=== PATIENT | male | born 1990 | race Caucasian/White ===

== ENCOUNTER 2019-03-29 06:34 | Emergency (ER) | payer MEDICAID ==
[~2019-03-29] VITALS: Ht 177.8 cm; Wt 88.5 kg
[~2019-03-29 06:34] MED LIST: ALPR1TAB2 PO; VERA120C2 PO
--- NOTE | 2019-03-29 06:40 | NUR ---
Placed in room 2 . Placed on threat monitoring analyst, blood pressure machine and pulse oximeter. To gown for exam. Side rails up. Report given to Bassam LOBO.
[2019-03-29 06:41] VITALS: BP_SYST 131
--- NOTE | 2019-03-29 06:41 | NUR ---
Pt came in via ambulance with a complete of palpitations and anxiety. No other complaint. Denies chest pain and no fever noted. Has history of SVT. Pt stated he has allergy to penicillin. Safety precaution observed. Will continue to monitor Pt.
--- NOTE | 2019-03-29 06:41 | NUR ---
ER at bedside examining patient.
[2019-03-29] MEDS ORDERED: NACL 0.9% 1,000 ML IV ONE (06:46)
--- NOTE | 2019-03-29 06:46 | NUR ---
# 20 gauge angiocath placed to RT AC. Use of asceptic technique. Opsite placed over site. Blood return noted. Blood for lab drawn from site. Flushed with 10 cc of normal saline. No evidence of infiltration noted. Patient tolerated well.
[2019-03-29] MEDS ORDERED: ONDANSETRON HCL 4 MG/2 ML VIAL IVP ONE (07:00)
--- NOTE | 2019-03-29 07:10 | NUR ---
Report from Jet LOBO. Patient sitting up in [facility], A&4.
[2019-03-29 07:27] LABS: BASOPHILS % (AUTO) 0.3 % (0.0-2.0); EOSINOPHILS # (AUTO) 0.1 K/uL (0.0-0.4); EOSINOPHILS % (AUTO) 1.1 % (0.0-4.0); HEMATOCRIT 41.3 % (36-54); LYMPHOCYTES # (AUTO) 3.9 K/uL (1.0-5.5); LYMPHOCYTES % (AUTO) 61.4 % (20.5-51.5); MEAN CORPUSCULAR HEMOGLOBIN 32 pg (27-31); MEAN CORPUSCULAR HGB CONC 34 % (32-36); MEAN CORPUSCULAR VOLUME 94 fL (79.0-98.0); MONOCYTES # (AUTO) 0.4 K/uL (0.0-1.0); MONOCYTES % (AUTO) 6.3 % (1.7-9.3); NEUTROPHILS # (AUTO) 1.9 K/uL (1.8-7.7); NEUTROPHILS % (AUTO) 30.9 % (40.0-70.0); PLATELET COUNT (AUTO) 231 K/uL (130-430); RED BLOOD CELL COUNT(AUTO) 4.39 MIL/uL (4.2-6.2); RED CELL DISTRIBUTION WIDTH 13.3 % (9.0-15.0); WHITE BLOOD COUNT (AUTO) 6.3 K/uL (4.8-10.8)
[2019-03-29 07:43] LABS: CALCIUM 8.8 mg/dL (8.4-11.0); CREATININE 0.99 mg/dL (0.55-1.30); POTASSIUM 3.2 mmol/L (3.5-5.1)
--- NOTE | 2019-03-29 07:45 | NUR ---
Patient given blanket, PT awake and talking with family member at bedside.
[2019-03-29 07:49] LABS: ALBUMIN 4.2 g/dL (3.4-4.8); TOTAL BILIRUBIN 0.5 mg/dL (0.0-1.0)
[2019-03-29 09:11] VITALS: BP_SYST 106
== END 2019-03-29 09:11 | disposition home or self-care (01) ==
LOC: SED 06:34
DX: F41.0 Panic disorder [episodic paroxysmal anxiety] (principal); R00.2 Palpitations; R00.0 Tachycardia, unspecified; F41.9 Anxiety disorder, unspecified; Z88.0 Allergy status to penicillin
CPT/HCPCS: 36415; 71045; 80053; 83880; 84484; 85025; 93005; 96374; 99284; J2405; J7030

== ENCOUNTER 2019-04-24 03:36 | Emergency (ER) | payer MEDICAID ==
[~2019-04-24] VITALS: Ht 177.8 cm; Wt 88.5 kg
[2019-04-24 03:36] VITALS: BP_SYST 118
--- NOTE | 2019-04-24 03:36 | NUR ---
Placed in room 06 . Placed on monitor and storage bin tender, blood pressure machine and pulse oximeter. To gown for exam. Side rails up.
--- NOTE | 2019-04-24 03:41 | NUR ---
Pt presents to ER with girlfriend with c/o anxiety. Pt A&Ox4. Pt states at approximately 3 am, pt woke up feeling very anxious. Pt states he attempted to walk around and use restroom but anxiety got worse. Pt states he felt his heart rate increasing and felt palpitation. Pt states he then became SOB and having pain to left shoulder. Pt states pain 4/10. Pt states this is the second time this has occurred in one month. Pt states history of anxiety, panic attacks, asthma, and SVT. Breath sounds bilaterally clear with no use of accessory muscles. Will continue to monitor.
--- NOTE | 2019-04-24 04:29 | NUR ---
ER Dr. Tolentino at bedside examining patient.
--- NOTE | 2019-04-24 04:45 | NUR ---
Radiology at bedside.
--- NOTE | 2019-04-24 06:00 | NUR ---
Labs drawn at bedside by Lakeisha LOBO.
[2019-04-24 06:50] LABS: BASOPHILS % (AUTO) 0.4 % (0.0-2.0); EOSINOPHILS # (AUTO) 0.1 K/uL (0.0-0.4); EOSINOPHILS % (AUTO) 1.3 % (0.0-4.0); HEMATOCRIT 39.8 % (36-54); HEMOGLOBIN 13.4 g/dL (14.0-18.0); LYMPHOCYTES # (AUTO) 1.9 K/uL (1.0-5.5); LYMPHOCYTES % (AUTO) 33.3 % (20.5-51.5); MEAN CORPUSCULAR HEMOGLOBIN 32 pg (27-31); MEAN CORPUSCULAR HGB CONC 34 % (32-36); MEAN CORPUSCULAR VOLUME 94 fL (79.0-98.0); MONOCYTES # (AUTO) 0.4 K/uL (0.0-1.0); MONOCYTES % (AUTO) 7.1 % (1.7-9.3); NEUTROPHILS # (AUTO) 3.2 K/uL (1.8-7.7); NEUTROPHILS % (AUTO) 57.9 % (40.0-70.0); PLATELET COUNT (AUTO) 221 K/uL (130-430); RED BLOOD CELL COUNT(AUTO) 4.21 MIL/uL (4.2-6.2); RED CELL DISTRIBUTION WIDTH 13.2 % (9.0-15.0); WHITE BLOOD COUNT (AUTO) 5.6 K/uL (4.8-10.8)
[2019-04-24 06:59] LABS: POTASSIUM 3.8 mmol/L (3.5-5.1)
[2019-04-24 07:00] LABS: CALCIUM 8.7 mg/dL (8.4-11.0); CREATININE 1.04 mg/dL (0.55-1.30); TOTAL BILIRUBIN 0.5 mg/dL (0.0-1.0)
[2019-04-24] MEDS ORDERED: NACL 0.9% 1,000 ML IV ONE (07:00)
[2019-04-24 07:01] LABS: ALBUMIN 3.9 g/dL (3.4-4.8)
--- NOTE | 2019-04-24 07:01 | NUR ---
# 20 gauge angiocath placed to R AC. Use of asceptic technique. Opsite placed over site. Blood return noted. Flushed with 10 cc of normal saline. No evidence of infiltration noted. Patient tolerated well.
--- NOTE | 2019-04-24 07:24 | NUR ---
Pt medicated with a bolus of normal saline.
--- NOTE | 2019-04-24 07:26 | NUR ---
Report given to LASHELL Paige to endorse all care.
--- NOTE | 2019-04-24 08:00 | NUR ---
PT RESTING IN BED COMFORTABLY NO C/O PAIN OR DISTRESS AT THIS TIME.
[2019-04-24 08:45] VITALS: BP_SYST 98
--- NOTE | 2019-04-24 08:45 | NUR ---
Patient does not wish to proceed with medical care recommended by DR FRITZ. Patient given information related to possible complications, up to and including , which could occur as a result of leaving hospital at this time. Patient verbalizes understanding of risks involved leaving against medical advice. Patient has signed AMA form.
== END 2019-04-24 08:45 | disposition left against medical advice (07) ==
LOC: SED 03:36
DX: R07.89 Other chest pain (principal); Z86.79 Personal history of other diseases of the circulatory system; Z86.73 Personal history of transient ischemic attack (TIA), and cerebral infarction without residual deficits; Z88.0 Allergy status to penicillin
CPT/HCPCS: 36415; 71045; 80053; 84484; 85025; 85379; 93005; 99285; J7030

== ENCOUNTER 2019-05-16 17:12 | Emergency (ER) | payer MEDICAID ==
[~2019-05-16] VITALS: Ht 180.3 cm; Wt 90.7 kg
[2019-05-16 17:12] VITALS: BP_SYST 123
[2019-05-16] MEDS: LORazepam 1 MG TABLET PO ONE ×2 (17:34→17:51)
[2019-05-16 17:53] LABS: BASOPHILS % (AUTO) 0.3 % (0.0-2.0); EOSINOPHILS % (AUTO) 0.2 % (0.0-4.0); HEMATOCRIT 43.3 % (36-54); LYMPHOCYTES # (AUTO) 2.7 K/uL (1.0-5.5); LYMPHOCYTES % (AUTO) 49.2 % (20.5-51.5); MEAN CORPUSCULAR HEMOGLOBIN 32 pg (27-31); MEAN CORPUSCULAR HGB CONC 35 % (32-36); MEAN CORPUSCULAR VOLUME 93 fL (79.0-98.0); MONOCYTES # (AUTO) 0.3 K/uL (0.0-1.0); MONOCYTES % (AUTO) 5.2 % (1.7-9.3); NEUTROPHILS # (AUTO) 2.5 K/uL (1.8-7.7); NEUTROPHILS % (AUTO) 45.1 % (40.0-70.0); PLATELET COUNT (AUTO) 229 K/uL (130-430); RED BLOOD CELL COUNT(AUTO) 4.66 MIL/uL (4.2-6.2); RED CELL DISTRIBUTION WIDTH 13.1 % (9.0-15.0); WHITE BLOOD COUNT (AUTO) 5.4 K/uL (4.8-10.8)
[2019-05-16 18:29] LABS: ANION GAP 14 (5-15); CALCIUM 9.4 mg/dL (8.4-11.0); CHLORIDE 101 mmol/L (98-107); CREATININE 1.06 mg/dL (0.55-1.30); GLUCOSE 97 mg/dL (70-99); POTASSIUM 3.5 mmol/L (3.5-5.1); SODIUM SERUM 138 mmol/L (136-145); UREA NITROGEN, BLOOD 9 mg/dL (8-21)
[2019-05-16 18:30] LABS: GFR AFRICAN AMERICAN 107 mL/min (>90)
[2019-05-16 18:37] LABS: ALANINE AMINOTRANSFERASE 26 U/L (12-78); ALBUMIN 4.5 g/dL (3.4-4.8); ASPARTATE AMINOTRANSFERASE 17 U/L (10-37)
[2019-05-16 19:01] VITALS: BP_SYST 123
== END 2019-05-16 18:55 | disposition home or self-care (01) ==
LOC: SED 17:12
DX: F41.9 Anxiety disorder, unspecified (principal); J45.909 Unspecified asthma, uncomplicated; Z88.0 Allergy status to penicillin; Z86.79 Personal history of other diseases of the circulatory system
CPT/HCPCS: 36415; 71045; 80053; 84484; 85025; 93005; 99285

== ENCOUNTER 2019-11-14 11:07 | Emergency (ER) | payer MEDICAID ==
[~2019-11-14] VITALS: Ht 177.8 cm; Wt 88.5 kg
[2019-11-14 11:10] VITALS: BP_SYST 115
[2019-11-14] MEDS: LORazepam 1 MG TABLET PO ONE (11:45)
[2019-11-14 12:38] LABS: CALCIUM 8.4 mg/dL (8.4-11.0); CREATININE 1.1 mg/dL (0.55-1.30); POTASSIUM 3.8 mmol/L (3.5-5.1)
[2019-11-14 12:43] LABS: ALBUMIN 3.8 g/dL (3.4-4.8); TOTAL BILIRUBIN 0.5 mg/dL (0.0-1.0)
[2019-11-14 13:24] VITALS: BP_SYST 115
== END 2019-11-14 11:10 | disposition home or self-care (01) ==
LOC: SED 11:07
DX: F41.9 Anxiety disorder, unspecified (principal); R11.0 Nausea; J45.909 Unspecified asthma, uncomplicated; Z79.899 Other long term (current) drug therapy; Z88.0 Allergy status to penicillin
CPT/HCPCS: 36415; 80053; 99283; J7030

== ENCOUNTER 2019-11-27 13:59 | Emergency (ER) | payer MEDICAID ==
[~2019-11-27] VITALS: Ht 180.3 cm; Wt 89.8 kg
--- NOTE | 2019-11-27 14:05 | NUR ---
Placed in room 01 . Placed on library monitor, blood pressure machine and pulse oximeter. To gown for exam. Side rails up.
--- NOTE | 2019-11-27 14:10 | NUR ---
ECG done at bedside as ordered by Dr. Pina. Patient tolerated the procedure well. ER Physician given copy of EKG for review.
--- NOTE | 2019-11-27 14:10 | NUR ---
Patient arrived in the ED c/o heart palpitations and shortness of breath that started 30mins ago. Denied any chest pain. Denied any fevers, chills, nausea or vomiting. Patient is alert and oriented x4, respirations even and unlabored, speaking in full sentences, and ambulating with a steady gait. VSS, pain level 0/10. Informed of the approximate wait time. Instructed to notify ED staff for any changes in condition or worsening of symptoms while waiting to be seen by an ED provider. Patient verbalized understanding.
[2019-11-27 14:12] VITALS: BP_SYST 109
--- NOTE | 2019-11-27 14:12 | NUR ---
ER Dr. Pina at bedside examining patient.
[2019-11-27] MEDS ORDERED: LORazepam 2 MG/ML VIAL IVP ONE (14:15)
--- NOTE | 2019-11-27 14:15 | NUR ---
# 18 gauge angiocath placed to RAC. Use of asceptic technique. Opsite placed over site. Blood return noted. Blood for lab drawn from site. Flushed with 10 cc of normal saline. No evidence of infiltration noted. Patient tolerated well.
--- NOTE | 2019-11-27 14:18 | NUR ---
Administered Ativan IVP as ordered by Dr. Pina. Patient tolerated the medications well. See eMAR for details.
[2019-11-27 14:49] LABS: CALCIUM 9.2 mg/dL (8.4-11.0); CREATININE 1.3 mg/dL (0.55-1.30); POTASSIUM 3.9 mmol/L (3.5-5.1)
[2019-11-27 15:06] VITALS: BP_SYST 109
== END 2019-11-27 15:05 | disposition home or self-care (01) ==
LOC: SED 13:59
DX: F41.9 Anxiety disorder, unspecified (principal); R00.2 Palpitations; J45.909 Unspecified asthma, uncomplicated; Z86.73 Personal history of transient ischemic attack (TIA), and cerebral infarction without residual deficits; Z88.0 Allergy status to penicillin
CPT/HCPCS: 36415; 80048; 93005; 96374; 99284; J2060

== ENCOUNTER 2020-03-16 19:50 | Emergency (ER) | payer MEDICAID, SELFPAY ==
[~2020-03-16] VITALS: Ht 177.8 cm; Wt 93.0 kg
[2020-03-16 20:00] VITALS: BP_SYST 136
[2020-03-16] MEDS ORDERED: IBUPROFEN 800 MG TABLET PO ONE (22:30)
[2020-03-16] MEDS ORDERED: IBUPROFEN 800 MG TABLET ONE (22:32)
[2020-03-16 22:58] LABS: BASOPHILS % (AUTO) 0.4 % (0.0-2.0); EOSINOPHILS % (AUTO) 0.3 % (0.0-4.0); HEMATOCRIT 42.7 % (36-54); HEMOGLOBIN 14.9 g/dL (14.0-18.0); LYMPHOCYTES # (AUTO) 2.3 K/uL (1.0-5.5); LYMPHOCYTES % (AUTO) 30.4 % (20.5-51.5); MEAN CORPUSCULAR HEMOGLOBIN 32 pg (27-31); MEAN CORPUSCULAR HGB CONC 35 % (32-36); MEAN CORPUSCULAR VOLUME 92 fL (79.0-98.0); MONOCYTES # (AUTO) 0.5 K/uL (0.0-1.0); MONOCYTES % (AUTO) 6.1 % (1.7-9.3); NEUTROPHILS # (AUTO) 4.8 K/uL (1.8-7.7); NEUTROPHILS % (AUTO) 62.8 % (40.0-70.0); PLATELET COUNT (AUTO) 225 K/uL (130-430); RED BLOOD CELL COUNT(AUTO) 4.65 MIL/uL (4.2-6.2); RED CELL DISTRIBUTION WIDTH 13.1 % (9.0-15.0); WHITE BLOOD COUNT (AUTO) 7.6 K/uL (4.8-10.8)
[2020-03-16 23:09] LABS: CREATININE 1.18 mg/dL (0.55-1.30); POTASSIUM 3.7 mmol/L (3.5-5.1)
[2020-03-16 23:19] LABS: ALBUMIN 4.5 g/dL (3.4-4.8); TOTAL BILIRUBIN 0.5 mg/dL (0.0-1.0)
[2020-03-17 01:06] VITALS: BP_SYST 116
== END 2020-03-17 01:06 | disposition home or self-care (01) ==
LOC: SED 19:50
DX: M54.6 Pain in thoracic spine (principal); R06.02 Shortness of breath; J45.909 Unspecified asthma, uncomplicated; Z88.0 Allergy status to penicillin; Z20.822 Contact with and (suspected) exposure to COVID-19
CPT/HCPCS: 36415; 71045; 80053; 85025; 85379; 93005; 99285

== ENCOUNTER 2020-12-04 09:53 | Emergency (ER) | payer MEDICAID, SELFPAY ==
[~2020-12-04] VITALS: Ht 177.8 cm; Wt 90.7 kg
[2020-12-04 10:00] VITALS: BP_SYST 141
[2020-12-04] MEDS ORDERED: LevALBUTEROL HCL 1.25 MG/0.5 ML *CONC.* VIAL.NEB (XOPENEX CONC.) INH ONE (11:30)
[2020-12-04 12:45] VITALS: BP_SYST 131
== END 2020-12-04 12:47 | disposition home or self-care (01) ==
LOC: SED 09:53
DX: R06.02 Shortness of breath (principal); J45.909 Unspecified asthma, uncomplicated; F41.9 Anxiety disorder, unspecified; Z79.899 Other long term (current) drug therapy
CPT/HCPCS: 71045; 94640; 99283; J7612

== ENCOUNTER 2020-12-21 18:34 | Emergency (ER) | payer MEDICAID, SELFPAY ==
[~2020-12-21] VITALS: Ht 177.8 cm; Wt 93.0 kg
[2020-12-21 18:45] VITALS: BP_SYST 121
[2020-12-21] MEDS ORDERED: ALBUTEROL SULFATE 0.083% 2.5 MG/3 ML VIAL.NEB INH ONE (19:00)
[2020-12-21] MEDS ORDERED: predniSONE 20 MG TABLET PO ONE (19:00)
[2020-12-21] MEDS ORDERED: IPRATROPIUM BROM 0.5 MG/2.5 ML VIAL.NEB (ATROVENT) INH ONE (19:00)
--- NOTE | 2020-12-21 19:10 | NUR ---
ER Dr. SAMPSON at bedside examining patient.
--- NOTE | 2020-12-21 19:10 | NUR ---
Patient to [facility] for evaluation. Side rails up.
--- NOTE | 2020-12-21 19:12 | NUR ---
PATIENT BROUGHT IN COMPLAINING OF ASTHMA ATTACK WITH DIFFICULTY BREATHING X 2 DAYS. PATIENT REPOTS TAKING INHALER WITH MINIMAL RELIEF. DENIES ANY CHEST PAIN, ABDOMINAL PAIN, NAUSEA VOMITING OR DIARRHEA. DENIES ANY PAIN AT THIS TIME. MILD RHONCHI.
[2020-12-21] MEDS ORDERED: PRED20TA PO (19:36)
[2020-12-21 20:10] VITALS: BP_SYST 126
--- NOTE | 2020-12-21 20:10 | NUR ---
Patient given written and verbal discharge instructions and verbalizes understanding. ER MD discussed with patient the results and treatment provided. Patient in stable condition. ID arm band removed. Rx of PREDNISONE given. Patient educated on pain management and to follow up with PMD. Pain Scale 0/10 Opportunity for questions provided and answered. Medication side effect fact sheet provided.
== END 2020-12-21 20:10 | disposition home or self-care (01) ==
LOC: SED 18:34
DX: J45.901 Unspecified asthma with (acute) exacerbation (principal); Z88.0 Allergy status to penicillin; Z79.899 Other long term (current) drug therapy
CPT/HCPCS: 71045; 94640; 99283; J7512; J7613

== ENCOUNTER 2021-02-12 20:19 | Emergency (ER) | payer MEDICAID, SELFPAY ==
[~2021-02-12] VITALS: Ht 177.8 cm; Wt 93.0 kg
[~2021-02-12 20:19] MED LIST changes: +PRED20TA PO
[2021-02-12 20:25] VITALS: BP_SYST 157
[2021-02-12] MEDS ORDERED: IBUPROFEN 600 MG TABLET PO ONE (21:00)
--- NOTE | 2021-02-12 21:12 | NUR ---
PT PLACED ON BEDSIDE MONITOR. C/O SOB X 5 DAYS, HEADACHE, LIGHTHEAEDNESS, AND GENERALIZED BODY ACHES. PT O2 SAT 98% ON ROOM AIR. STATES PAIN TO HEAD AND BODYACHES IS 5/10. DENIES N/V. PT HAS BEEN AFEBRILE. PT VACCINATED WITH ONE COVID VACCINE ONLY. PT STATES HE FEELS LIKEHE CANT BREATH BUT ADVISED HES O2 SAT IS 98% ON ROOM AIR. PT HAS HX OF ASTHMA, USES INHALERS AT HOME. PT ON GURNEY, BED IN LOWEST POSITION, SIERAIL UP X 1, AND BED LOCKED
[2021-02-12] MEDS ORDERED: LORazepam 1 MG TABLET PO ONE (22:00)
--- NOTE | 2021-02-12 22:19 | NUR ---
COVID AND INFLUENZA SWABS COLLECTED AND TAKEN TO LAB
[2021-02-12] MEDS ORDERED: PRED20TA PO (22:23)
[2021-02-12] MEDS ORDERED: METO-290 PO (22:23)
[2021-02-12] MEDS ORDERED: IBUP-1969 PO (22:23)
--- NOTE | 2021-02-12 22:33 | NUR ---
PT CONTINUES TO FEEL BAD BODY ACHES ANF HEADACHES AND FEELS SOB. WILL ADVISED MD AGAIN
--- NOTE | 2021-02-12 23:00 | NUR ---
PT TESTED POSITIVE FOR COVID, ADVISED PT OF RESULTS, PROVIDED THROUGH DISCHARGE INSTRUCTIONS, ALL QUESTIONS ANSWERED
[2021-02-12 23:01] VITALS: BP_SYST 139
--- NOTE | 2021-02-12 23:02 | NUR ---
Patient given written and verbal discharge instructions and verbalizes understanding. ER MD discussed with patient the results and treatment provided. Patient in stable condition. ID arm band removed. IV catheter removed intact and dressing applied, no active bleeding. Rx of MOTRIN, PREDNISONE, AND REGLAN given. Patient educated on pain management and to follow up with PMD. Pain Scale 7. Opportunity for questions provided and answered. Medication side effect fact sheet provided.
== END 2021-02-12 23:02 | disposition home or self-care (01) ==
LOC: SED 20:19
DX: U07.1 COVID-19 (principal); J45.909 Unspecified asthma, uncomplicated; R51.9 Headache, unspecified; F41.9 Anxiety disorder, unspecified; Z88.0 Allergy status to penicillin; Z79.899 Other long term (current) drug therapy
CPT/HCPCS: 36415; 71045; 86710; 93005; 99285

== ENCOUNTER 2021-05-31 12:13 | Emergency (ER) | payer MEDICAID ==
[~2021-05-31] VITALS: Ht 177.8 cm; Wt 95.3 kg
[~2021-05-31 12:13] MED LIST changes: +IBUP-1969 PO; +METO-290 PO
[2021-05-31 12:15] VITALS: BP_SYST 113
--- NOTE | 2021-05-31 12:15 | NUR ---
Patient to ER bed 1 to gown for evaluation. Side rails up. Assumed care.
--- NOTE | 2021-05-31 12:15 | NUR ---
pt. bib with c/o SOB, chest pressure, anxiety, O2 sat 100% on RA, pt. tachypneic, states had some asmatha issues yesterday has been using his inhaler that made him feel anxious and now he feels "he can't brethe."
--- NOTE | 2021-05-31 12:20 | NUR ---
MYRANDA Haynes at bedside examining patient.
[2021-05-31] MEDS ORDERED: NACL 0.9% 1,000 ML IV ONE (12:30)
[2021-05-31] MEDS ORDERED: LORazepam 2 MG/ML VIAL IVP ONE (12:30)
[2021-05-31 12:50] LABS: BASOPHILS % (AUTO) 0.2 % (0.0-2.0); EOSINOPHILS % (AUTO) 0.4 % (0.0-4.0); HEMATOCRIT 42.8 % (36-54); LYMPHOCYTES # (AUTO) 4.4 K/uL (1.0-5.5); LYMPHOCYTES % (AUTO) 64.8 % (20.5-51.5); MEAN CORPUSCULAR HEMOGLOBIN 32 pg (27-31); MEAN CORPUSCULAR HGB CONC 35 % (32-36); MEAN CORPUSCULAR VOLUME 91 fL (79.0-98.0); MONOCYTES # (AUTO) 0.4 K/uL (0.0-1.0); MONOCYTES % (AUTO) 5.6 % (1.7-9.3); PLATELET COUNT (AUTO) 245 K/uL (130-430); RED BLOOD CELL COUNT(AUTO) 4.72 MIL/uL (4.2-6.2); RED CELL DISTRIBUTION WIDTH 13.4 % (9.0-15.0); WHITE BLOOD COUNT (AUTO) 6.8 K/uL (4.8-10.8)
[2021-05-31 13:14] LABS: ALANINE AMINOTRANSFERASE 42 U/L (12-78); ALBUMIN 4.5 g/dL (3.4-4.8); ASPARTATE AMINOTRANSFERASE 22 U/L (10-37); CALCIUM 9.2 mg/dL (8.4-11.0); CREATININE 1.21 mg/dL (0.55-1.30); GLUCOSE 105 mg/dL (70-99); TOTAL BILIRUBIN 0.6 mg/dL (0.0-1.0); UREA NITROGEN, BLOOD 13 mg/dL (8-21)
[2021-05-31 13:15] LABS: GFR AFRICAN AMERICAN 91 mL/min (>90)
[2021-05-31 13:30] LABS: SODIUM SERUM 137 mmol/L (136-145)
[2021-05-31 13:31] LABS: ANION GAP 16 (5-15); CHLORIDE 101 mmol/L (98-107); POTASSIUM 3.1 mmol/L (3.5-5.1)
[2021-05-31 13:54] LABS: PROTHROMBIN TIME 10.3 SECS (9.5-12.5)
[2021-05-31] MEDS ORDERED: POTASSIUM CHLORIDE 20 MEQ/PKT PACKET PO ONE (14:15)
[2021-05-31 14:23] LABS: BARBITURATE, URINE NEGATIVE (NEG <=200); BENZODIAZEPINE, URINE POSITIVE (NEG <=150); CANNABINOID, URINE NEGATIVE (NEG <=50); COCAINE, URINE NEGATIVE (NEG <=150); METHAMPHETAMINES SCREEN,URINE NEGATIVE (NEG <=500); OPIATE, URINE NEGATIVE (NEG <=100); PHENCYCLIDINE SCREEN,URINE NEGATIVE (NEG <=25); UR TRICYCLIC ANTIDEPRESSANTS NEGATIVE (NEG <=300); URINE AMPHETAMINE NEGATIVE (NEG <=500); URINE METHADONE NEGATIVE (NEG <=200); URINE OXYCODONE SCREEN NEGATIVE (NEG <=100); URINE PROPOXYPHENE SCREEN NEGATIVE (NEG <=300)
[2021-05-31 14:49] VITALS: BP_SYST 122
--- NOTE | 2021-05-31 14:50 | NUR ---
Patient given written and verbal discharge instructions and verbalizes understanding. MYRANDA MARTIN MD discussed with patient the results and treatment provided. Patient in stable condition. ID arm band removed. IV catheter removed intact and dressing applied, no active bleeding. Patient educated on pain management and to follow up with PMD. Pain Scale 0. Opportunity for questions provided and answered. Medication side effect fact sheet provided.
== END 2021-05-31 14:50 | disposition home or self-care (01) ==
LOC: SED 12:13
DX: E87.6 Hypokalemia (principal); F41.9 Anxiety disorder, unspecified; Z88.0 Allergy status to penicillin; Z79.899 Other long term (current) drug therapy; J45.909 Unspecified asthma, uncomplicated
CPT/HCPCS: 36415; 71045; 80053; 80307; 83880; 84484; 85025; 85379; 85610; 93005; 96361; 96374; 99285; J2060; J7030

== ENCOUNTER 2021-06-05 19:40 | Emergency (ER) | payer MEDICAID ==
[~2021-06-05] VITALS: Ht 177.8 cm; Wt 94.3 kg
[2021-06-05 19:45] VITALS: BP_SYST 128
== END 2021-06-05 20:39 | disposition left against medical advice (07) ==
LOC: SED 19:40
DX: R06.02 Shortness of breath (principal); Z53.21 Procedure and treatment not carried out due to patient leaving prior to being seen by health care provider

== ENCOUNTER 2021-10-07 21:54 | Emergency (ER) | payer MEDICAID ==
[~2021-10-07] VITALS: Ht 177.8 cm; Wt 83.0 kg
--- NOTE | 2021-10-07 22:00 | NUR ---
SABINO LOBO PT COMES IN WITH CC OF SOB AND FEELING ANXIOUS, RT AT BEDSIDE FOR ADMINISTRATION OF BREATHING TREATMENT, PT TOLERATING WELL. VSS,NAD. WILL CONTINUE TO MONITOR.
[2021-10-07 22:03] VITALS: BP_SYST 122
--- NOTE | 2021-10-07 22:05 | NUR ---
Placed in room 7 . Placed on torpedo worker, blood pressure machine and pulse oximeter. To gown for exam. Side rails up. Report given to Mariana LOBO(reg).
--- NOTE | 2021-10-07 22:10 | NUR ---
ER at bedside examining patient.
[2021-10-07] MEDS ORDERED: IPRATROPIUM/ALBUTEROL SULFATE 3 ML AMPUL.NEB (DUONEB) INH ONE (22:15)
[2021-10-07] MEDS ORDERED: methylPREDNISolone SOD SUCC/PF 62.5 MG/ML VIAL IM ONE (22:15)
[2021-10-07] MEDS ORDERED: LORazepam 2 MG/ML VIAL IVP ONE (22:30)
[2021-10-07] MEDS ORDERED: LORazepam 1 MG TABLET PO ONE (22:30)
[2021-10-07] MEDS ORDERED: PRED20TA PO (22:54)
[2021-10-07] MEDS ORDERED: ALBMDI INH (22:54)
[2021-10-07 23:04] VITALS: BP_SYST 135
--- NOTE | 2021-10-07 23:07 | NUR ---
PT STABLE FOR D/C HOME, PT TOLERATED MEDS WELL. PT ADVISED TO FOLLOW UP WITH PCP
== END 2021-10-07 23:04 | disposition home or self-care (01) ==
LOC: SED 21:54
DX: R06.02 Shortness of breath (principal); R05.9 Cough, unspecified; J45.909 Unspecified asthma, uncomplicated; Z88.0 Allergy status to penicillin; Z79.899 Other long term (current) drug therapy
CPT/HCPCS: 99283; 94640; 96372; J2930

== ENCOUNTER 2021-11-04 19:11 | Emergency (ER) | payer MEDICAID ==
[~2021-11-04] VITALS: Ht 177.8 cm; Wt 81.6 kg
[~2021-11-04 19:11] MED LIST changes: +ALBMDI INH
--- NOTE | 2021-11-04 19:26 | NUR ---
Patient to ER bed 6 to gown for evaluation. Side rails up. Report given to .
[2021-11-04 19:27] VITALS: BP_SYST 123
[2021-11-04] MEDS ORDERED: predniSONE 20 MG TABLET PO ONE (19:30)
[2021-11-04] MEDS ORDERED: ALBUTEROL SULFATE 0.083% 2.5 MG/3 ML VIAL.NEB INH ONE (19:30)
--- NOTE | 2021-11-04 19:30 | NUR ---
MYRANDA James at bedside examining patient.
--- NOTE | 2021-11-04 19:31 | NUR ---
Pt C/O SOB. O2 sat @99 RM Hx of asthma, anxiety AOX4 VSS Able to make needs known NAD at this time RT called to bedside Will continue to monitor
--- NOTE | 2021-11-04 20:17 | NUR ---
Pt resting comfortably in bed AOX4 VSS Able to make needs known NAD at this time Will continue to monitor
[2021-11-04] MEDS ORDERED: PRED20TA PO (20:54)
[2021-11-04 21:00] VITALS: BP_SYST 126
--- NOTE | 2021-11-04 21:05 | NUR ---
Pt DC per MD's order DC instructions and prescription provided to pt Pt verbalized understandngs AOX4 VSS Able to make needs known NAD at this time Pt exited ED in stable gait
== END 2021-11-04 21:05 | disposition home or self-care (01) ==
LOC: SED 19:11
DX: J45.901 Unspecified asthma with (acute) exacerbation (principal); F41.9 Anxiety disorder, unspecified; Z88.0 Allergy status to penicillin; Z79.899 Other long term (current) drug therapy
CPT/HCPCS: 94640; 99283; J7512; J7613

== ENCOUNTER 2022-07-11 12:26 | Emergency (ER) | payer MEDICAID ==
[~2022-07-11] VITALS: Ht 177.8 cm; Wt 72.6 kg
[2022-07-11 12:40] VITALS: BP_SYST 118
--- NOTE | 2022-07-11 12:50 | NUR ---
Patient to ER bed 02 to gown for evaluation. Side rails up. Report given to LASHELL LOUIS.
--- NOTE | 2022-07-11 12:53 | NUR ---
PT CAME IN FROM HOME R BUTTOCKS PAIN DOWN THIGH AND BACK OF LEG. WAS PLAYING BASKETBALL LAST NIGHT. PAIN WITH AMBULATION BUT STEADY GAIT, AAOX4, VSS
--- NOTE | 2022-07-11 12:57 | NUR ---
DR PARADA AT BEDSIDE FOR EVALUATION
[2022-07-11] MEDS ORDERED: IBUP-1969 PO (13:09)
[2022-07-11] MEDS ORDERED: KETOROLAC TROMETHAMINE 60 MG/2 ML VIAL IM ONE (13:15)
--- NOTE | 2022-07-11 13:30 | NUR ---
XRAYS BEING DONE AT BEDSIDE FOR EVALUATION
--- NOTE | 2022-07-11 14:46 | NUR ---
Patient given written and verbal discharge instructions and verbalizes understanding. ER MD discussed with patient the results and treatment provided. Patient in stable condition. ID arm band removed. Rx of IBUPROFEN given. Patient educated on pain management and to follow up with PMD. Pain Scale 1/10. Opportunity for questions provided and answered. Medication side effect fact sheet provided.
== END 2022-07-11 14:46 | disposition home or self-care (01) ==
LOC: SED 12:26
DX: S76.011A Strain of muscle, fascia and tendon of right hip, initial encounter (principal); J45.909 Unspecified asthma, uncomplicated; Z88.0 Allergy status to penicillin; Z79.899 Other long term (current) drug therapy; W21.05XA Struck by basketball, initial encounter; Y93.67 Activity, basketball; Y92.89 Other specified places as the place of occurrence of the external cause; Y99.8 Other external cause status
CPT/HCPCS: 99285; 72192; 73502; 76376; 96372; 72170; J1885

== ENCOUNTER 2022-11-23 00:40 | Emergency (ER) | payer MEDICAID ==
[~2022-11-23] VITALS: Ht 177.8 cm; Wt 72.6 kg
[~2022-11-23 00:40] MED LIST changes: +CORTEARS LEFT EAR; +IBUP-1971 PO
[2022-11-23 00:41] VITALS: BP_SYST 134; PULSE 78; RESP 19; TEMP 97.8; O2SAT 100
[2022-11-23] MEDS ORDERED: LORazepam 2 MG/ML VIAL IM ONE (01:00)
[2022-11-23 01:43] VITALS: BP_SYST 132
[2022-11-23 01:51] VITALS: PULSE 83; RESP 18; TEMP 97.7; O2SAT 98
== END 2022-11-23 01:41 | disposition home or self-care (01) ==
LOC: SED 00:40
DX: F41.9 Anxiety disorder, unspecified (principal); R06.4 Hyperventilation; R06.02 Shortness of breath; R00.2 Palpitations; J45.909 Unspecified asthma, uncomplicated; Z88.0 Allergy status to penicillin; Z79.899 Other long term (current) drug therapy
CPT/HCPCS: 99281; J2060

== ENCOUNTER 2023-07-07 19:30 | Emergency (ER) | payer MEDICAID ==
[~2023-07-07] VITALS: Ht 177.8 cm; Wt 71.7 kg
[2023-07-07 19:52] VITALS: BP_SYST 111; PULSE 97; RESP 16; TEMP 97.9; O2SAT 95
== END 2023-07-07 20:35 | disposition left against medical advice (07) ==
LOC: SED 19:30
DX: M54.6 Pain in thoracic spine (principal); Z53.21 Procedure and treatment not carried out due to patient leaving prior to being seen by health care provider

== ENCOUNTER 2023-07-22 18:44 | Emergency (ER) | payer MEDICAID ==
[~2023-07-22] VITALS: Ht 170.2 cm; Wt 77.1 kg
[2023-07-22 18:50] VITALS: BP_SYST 147; PULSE 143; RESP 30; TEMP 99.1; O2SAT 97
[2023-07-22] MEDS ORDERED: NACL 0.9% 2,000 ML IV ONE (19:00)
[2023-07-22 19:22] LABS: BASOPHILS % (AUTO) 0.2 % (0.0-2.0); EOSINOPHILS % (AUTO) 0.6 % (0.0-4.0); HEMATOCRIT 40.8 % (36-54); HEMOGLOBIN 14.5 g/dL (14.0-18.0); LYMPHOCYTES # (AUTO) 3.7 K/uL (1.0-5.5); LYMPHOCYTES % (AUTO) 59.3 % (20.5-51.5); MEAN CORPUSCULAR HEMOGLOBIN 32 pg (27-31); MEAN CORPUSCULAR HGB CONC 36 % (32-36); MEAN CORPUSCULAR VOLUME 91 fL (79.0-98.0); MONOCYTES # (AUTO) 0.3 K/uL (0.0-1.0); MONOCYTES % (AUTO) 5.4 % (1.7-9.3); NEUTROPHILS # (AUTO) 2.1 K/uL (1.8-7.7); NEUTROPHILS % (AUTO) 34.5 % (40.0-70.0); PLATELET COUNT (AUTO) 220 K/uL (130-430); RED BLOOD CELL COUNT(AUTO) 4.48 MIL/uL (4.2-6.2); RED CELL DISTRIBUTION WIDTH 13.5 % (9.0-15.0); WHITE BLOOD COUNT (AUTO) 6.2 K/uL (4.8-10.8)
[2023-07-22 19:36] LABS: PROTHROMBIN TIME 10.5 SECS (9.5-12.5)
[2023-07-22] MEDS: ONDANSETRON HCL 4 MG/2 ML VIAL IVP ONE (19:37)
[2023-07-22] MEDS: FAMOTIDINE PF 20 MG/2 ML VIAL IVP ONE (19:38)
[2023-07-22] MEDS: DIPHENHYDRAMINE INJ 50 MG/ML VIAL IVP ONE (19:39)
[2023-07-22] MEDS: methylPREDNISolone SOD SUCC/PF 62.5 MG/ML VIAL IVP ONE (19:40)
[2023-07-22 19:44] LABS: ALANINE AMINOTRANSFERASE 16 U/L (12-78); ALBUMIN 4.7 g/dL (3.4-4.8); ANION GAP 11 (5-15); ASPARTATE AMINOTRANSFERASE 15 U/L (10-37); CALCIUM 8.9 mg/dL (8.4-11.0); CARBON DIOXIDE 26 mmol/L (23-29); CHLORIDE 102 mmol/L (98-107); CREATININE 1.08 mg/dL (0.55-1.30); GFR AFRICAN AMERICAN 102 mL/min (>90); GLUCOSE 109 mg/dL (74-106); POTASSIUM 3.4 mmol/L (3.5-5.1); SODIUM SERUM 139 mmol/L (136-145); TOTAL BILIRUBIN 0.9 mg/dL (0.0-1.0); TOTAL PROTEIN, SERUM 8.2 g/dL (6.4-8.3); UREA NITROGEN, BLOOD 12 mg/dL (8-21)
[2023-07-22] MEDS: LORazepam 2 MG/ML VIAL IVP ONE (19:45)
[2023-07-22 19:46] LABS: BILIRUBIN,DIRECT 0.1 mg/dL (0.0-0.3); GFR NON AFRICAN-AMERICAN 84 mL/min (>90)
[2023-07-22] MEDS: NACL 0.9% 1,000 ML IV ONE (19:51)
[2023-07-22 20:12] LABS: BILIRUBIN,URINE NEGATIVE (NEGATIVE); BLOOD, URINE NEGATIVE (NEGATIVE); CLARITY/URINE CLEAR (CLEAR); COLOR,URINE YELLOW (YELLOW); GLUCOSE,URINE NEGATIVE (NEGATIVE); KETONES,URINE 1+ (NEGATIVE); LEUKOCYTE ESTERASE ,URINE NEGATIVE (NEGATIVE); NITRITE, URINE NEGATIVE (NEGATIVE); PROTEIN URINE NEGATIVE (NEGATIVE)
[2023-07-22 20:23] LABS: BARBITURATE, URINE NEGATIVE (NEG <=200); BENZODIAZEPINE, URINE POSITIVE (NEG <=150); CANNABINOID, URINE NEGATIVE (NEG <=50); COCAINE, URINE NEGATIVE (NEG <=150); METHAMPHETAMINES SCREEN,URINE NEGATIVE (NEG <=500); OPIATE, URINE NEGATIVE (NEG <=100); PHENCYCLIDINE SCREEN,URINE NEGATIVE (NEG <=25); UR TRICYCLIC ANTIDEPRESSANTS NEGATIVE (NEG <=300); URINE AMPHETAMINE NEGATIVE (NEG <=500); URINE METHADONE NEGATIVE (NEG <=200); URINE OXYCODONE SCREEN NEGATIVE (NEG <=100)
[2023-07-22] MEDS ORDERED: BEN50 PO (21:24)
[2023-07-22] MEDS ORDERED: METH-776 PO (21:24)
[2023-07-22] MEDS ORDERED: ONDA-8 TL (21:24)
[2023-07-22 22:23] VITALS: BP_SYST 147; PULSE 143; RESP 30; TEMP 99.1; O2SAT 97
== END 2023-07-22 22:10 | disposition home or self-care (01) ==
LOC: SED 18:44
DX: T78.1XXA Other adverse food reactions, not elsewhere classified, initial encounter (principal); F41.9 Anxiety disorder, unspecified; R51.9 Headache, unspecified; R42 Dizziness and giddiness; R00.2 Palpitations; R53.1 Weakness; R11.10 Vomiting, unspecified; J45.909 Unspecified asthma, uncomplicated; Z88.0 Allergy status to penicillin; Z79.899 Other long term (current) drug therapy; Z79.2 Long term (current) use of antibiotics; X58.XXXA Exposure to other specified factors, initial encounter
CPT/HCPCS: 99291; 96374; 96375; 71045; 96361; 80307; 80076; 80048; 81001; 83880; 85025; 85379; 85610; 85730; 84484; 36415; 93005; J1200; J3490; J2060; J2405; J7030; 81003; J2930

== ENCOUNTER 2023-07-23 12:17 | Emergency (ER) | payer MEDICAID ==
[~2023-07-23] VITALS: Ht 177.8 cm; Wt 72.6 kg
[~2023-07-23 12:17] MED LIST changes: +BEN50 PO; +METH-776 PO; +ONDA-8 TL
[2023-07-23 12:33] VITALS: BP_SYST 116; PULSE 122; RESP 18; TEMP 97.5; O2SAT 98
[2023-07-23 12:57] LABS: BASOPHILS % (AUTO) 0.1 % (0.0-2.0); HEMATOCRIT 42.3 % (36-54); HEMOGLOBIN 14.5 g/dL (14.0-18.0); LYMPHOCYTES # (AUTO) 1.3 K/uL (1.0-5.5); LYMPHOCYTES % (AUTO) 10.5 % (20.5-51.5); MEAN CORPUSCULAR HEMOGLOBIN 32 pg (27-31); MEAN CORPUSCULAR HGB CONC 34 % (32-36); MEAN CORPUSCULAR VOLUME 92 fL (79.0-98.0); MONOCYTES # (AUTO) 0.4 K/uL (0.0-1.0); NEUTROPHILS # (AUTO) 10.5 K/uL (1.8-7.7); NEUTROPHILS % (AUTO) 86.4 % (40.0-70.0); PLATELET COUNT (AUTO) 231 K/uL (130-430); RED BLOOD CELL COUNT(AUTO) 4.59 MIL/uL (4.2-6.2); RED CELL DISTRIBUTION WIDTH 13.5 % (9.0-15.0); WHITE BLOOD COUNT (AUTO) 12.2 K/uL (4.8-10.8)
[2023-07-23 13:10] LABS: PROTHROMBIN TIME 10.4 SECS (9.5-12.5)
[2023-07-23 13:23] LABS: ANION GAP 14 (5-15); CALCIUM 8.8 mg/dL (8.4-11.0); CARBON DIOXIDE 22 mmol/L (23-29); CHLORIDE 103 mmol/L (98-107); CREATINE KINASE, TOTAL 71 U/L (39-308); CREATININE 1.05 mg/dL (0.55-1.30); FREE T4 (FREE THYROXINE) 1.3 ng/dl (0.8-1.5); GFR AFRICAN AMERICAN 105 mL/min (>90); GFR NON AFRICAN-AMERICAN 87 mL/min (>90); GLUCOSE 119 mg/dL (74-106); POTASSIUM 3.7 mmol/L (3.5-5.1); SODIUM SERUM 139 mmol/L (136-145); UREA NITROGEN, BLOOD 13 mg/dL (8-21)
[2023-07-23 14:48] VITALS: BP_SYST 121; PULSE 105; RESP 18; TEMP 98; O2SAT 99
== END 2023-07-23 14:48 | disposition home or self-care (01) ==
LOC: SED 12:17
DX: R00.2 Palpitations (principal); J45.909 Unspecified asthma, uncomplicated; Z88.0 Allergy status to penicillin
CPT/HCPCS: 36415; 71045; 80048; 82550; 83880; 84439; 84443; 84484; 85025; 85610; 85730; 93005; 99285